=== PATIENT | male | born 1980 | race Caucasian/White ===

== ENCOUNTER → 2017-07-16 | Day surgery (SDC) | payer OTHER ==
[~2017-07-16] VITALS: Ht 177.8 cm; Wt 69.9 kg
[~2017-07-16] MED LIST: Albuterol 2.5 mg/3 mL Inhalation Solution NEB PRN; Atropine 0.4 mg/mL Inj IVPUSH PRN; Bacitracin 50,000 unit Inj IRRIGATION ONE; CeFAZolin 2 Gm/50 mL D5W Duplex Bag IV ONE; CeFAZolin Inj 2 GM in IV Premix 1 EACH IV ONE; DIPH25CA6 PO; Dexamethasone 4 mg/mL Inj IVPUSH PRN; EPHEDrine Sulfate 50 mg/mL Inj IVPUSH PRN; EPHEDrine/NS 5 mg/mL 5 mL Syringe ONE; Glycopyrrolate 0.2 MG/ML 1mL Inj ONE; HYDROcodone-APAP 5-325 mg Tablet PO PRN; HYDROmorphone 1 mg/mL Inj IVPUSH PRN; HYDROmorphone 1 mg/mL Inj ONE; Ketorolac 15 mg/mL Inj IVPUSH ONE; Labetalol 5 mg/mL 20 mL Inj IV PRN; Lactated Ringer's 1,000 ML IV ONE; Lactated Ringer's 1,000 ML IV SCH; Lactated Ringer's 500 ML IV PRN; MetoCLOpramide 5 mg/mL 2 mL Inj IVPUSH PRN; NPR500T PO; Neostigmine 1 mg/mL 10 mL Inj ONE; Ondansetron 2 mg/mL 2 mL Inj IVPUSH PRN; Ondansetron 2 mg/mL 2 mL Inj ONE; Phenylephrine 10,000 mCg/mL Inj IVPUSH PRN; Phenylephrine/NS 100 mCg/mL 10 mL Syringe IVPUSH ONE; Propofol 10,000 mCg/mL 20 mL Inj ONE; Rocuronium 10 mg/mL 5 mL Inj ONE; Ropivacaine-PF 0.5% 30 mL Inj INJ ONE; fentaNYL-PF 50 mCg/mL 2 mL Inj IVPUSH PRN; fentaNYL-PF 50 mCg/mL 2 mL Inj ONE; hydrALAZINE 20 mg/mL Inj IVPUSH PRN
[2017-07-16 13:47] VITALS: BP 132/76; PULSE 61; RESP 16; O2SAT 99
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
[2017-07-16 17:34] VITALS: BP 157/87; PULSE 97; RESP 13; O2SAT 99
[2017-07-16 17:40] VITALS: BP 162/90; PULSE 78; RESP 11; O2SAT 97
--- NOTE | 2017-07-16 17:40 | PCM.ANEP1 ---
Post Anesthesia PACU Phase 1 Assessment Date of Service: Jul 16, 2017 Vital Signs Vital Signs Date Time Temp Pulse Resp B/P Pulse Ox O2 Delivery O2 Flow Rate FiO2 07/16/17 17:34 36.7 97 13 157/87 99 Room Air 07/16/17 13:47 36.8 61 16 132/76 99 Room Air Anesthetic Administered: GA Level of Alertness: Awake, talking PRESSLEY's with Equal Strength: Yes Pain: Yes Pain Scale Score: 3 Nausea or Vomiting: No CV Function & Hydration Stable: Yes Airway Device: Oxygen Delivery: Room Air Lungs: Normal Air Movement Dermatome Level: Full Sensation PACU Phase 2 Assessment Complications: No Follow up Care: N/A Patient Instructions Provided: N/A Hermelindo Early MD Jul 16, 2017 17:40
[2017-07-16 17:45] VITALS: BP 169/95; PULSE 89; RESP 16; O2SAT 97
[2017-07-16 17:49] VITALS: BP 159/88; PULSE 72; RESP 11; O2SAT 97
== END | disposition home or self-care (01) ==
LOC: SAS 12:47
PROVIDERS: ATTEND Orthopaedic Surgery
DX: S42.021A Displaced fracture of shaft of right clavicle, initial encounter for closed fracture (principal); F41.9 Anxiety disorder, unspecified; F17.210 Nicotine dependence, cigarettes, uncomplicated; V18.0XXA Pedal cycle driver injured in noncollision transport accident in nontraffic accident, initial encounter; Y93.55 Activity, bike riding; Y92.9 Unspecified place or not applicable; Y99.8 Other external cause status
CPT/HCPCS: 23515; 76001; C1713; J0690; J1170; J1885; J2250; J2370; J2405; J2704; J2710; J2795; J3010; J7120